=== PATIENT | female | born 1995 | race Caucasian/White ===

== ENCOUNTER → 2023-10-01 06:49 | Outpatient (REF) | payer BC, SELFPAY | LOC: PNTC 06:49 | PROVIDERS: ATTENDING PHYSICIAN Obstetrics & Gynecology | DX: O99.210 Obesity complicating pregnancy, unspecified trimester (principal) | CPT/HCPCS: 76811 ==

== ENCOUNTER 2023-10-22 15:53 | Emergency (ER) | payer BC, SELFPAY ==
[2023-10-22 16:00] VITALS: BP 113/78
[2023-10-22 16:21] LABS: % Basophils 0.1 % (0-2); % Eosinophils 1.1 % (0-6); % Immature Granulocytes 0.8 % (0-0.5); % Lymphocytes 20.2 % (20.5-51.1); % Monocytes 6.1 % (1.7-9.3); % Neutrophils 71.7 % (42.2-75.2); Absolute Eosinophils 0.1 10^3/uL (0-0.7); Absolute Immature Granulocytes 0.1 10^3/uL (0-0.05); Absolute Lymphocytes 2.4 10^3/uL (1.2-3.4); Absolute Monocytes 0.7 10^3/uL (0.1-0.6); Absolute Neutrophils 8.3 10^3/uL (1.4-6.5); Hematocrit 32.9 % (37.0-47.0); Hemoglobin 11.7 g/dL (12.0-16.0); Mean Corp Hgb Conc. 35.6 g/dL (33.0-37.0); Mean Corpuscular Hgb 30.4 pg (27.0-31.0); Mean Corpuscular Volume 85.5 fL (81.0-99.0); Mean Platelet Volume 10.9 fL (7.4-10.4); Nucleated Red Blood Cells % 0 %; Platelet Count 290 10^3/uL (130-400); Red Blood Cell Count 3.85 10^6/uL (4.20-5.40); White Blood Cell Count 11.6 10^3/uL (4.8-10.8)
[2023-10-22 16:24] LABS: Urine Albumin Negative (Neg - Trace); Urine Bilirubin Negative (Negative); Urine Character Clear (Clear); Urine Color Straw; Urine Glucose Negative (Negative); Urine Ketone Negative (Negative); Urine Leukocyte Negative (Negative); Urine Nitrite Negative (Negative); Urine Occult Blood Negative (Negative); Urine Urobilinogen Negative (Neg - 1+)
[2023-10-22 16:38] LABS: ALT (SGPT) 19 U/L (0-35); AST (SGOT) 21 U/L (14-36); Albumin 3.5 g/dl (3.5-5.0); Alkaline Phosphatase 76 U/L (38-126); Blood Urea Nitrogen 6 mg/dl (7-17); Calcium 10.2 mg/dl (8.4-10.2); Carbon Dioxide 22 mmol/L (22-30); Chloride 104 mmol/L (98-107); Glucose 86 mg/dl (70-99); Potassium 3.7 mmol/L (3.5-5.1); Sodium 136 mmol/L (135-145); Total Bilirubin 0.3 mg/dl (0.2-1.3); Total Protein 6.1 g/dl (6.3-8.2); eGFR > 60.00
[2023-10-22 16:39] LABS: Lipase 71 U/L (23-300)
--- NOTE | 2023-10-22 19:16 | ED.GENMED ---
History of Present Illness
General
Chief Complaint: Abdominal Pain
Source: patient
Exam Limitations: none
Time Seen by Provider: 10/22/23 18:40
Travel History
Have you had any contact with someone who has COVID-19?: No
Do you have any symptoms of coronavirus? Fever > 100 degrees, chills, cough, shortness of breath, sore throat, loss of taste or smell, muscle aches, or headache?: No
History of Present Illness
History of Present Illness:
This is a 27 year old female that comes in with c/o right upper abd pain. States that she has pain in the right upper abd with standing and walking. Sates that this started a couple of days ago but today she felt like she couldn't walk due to the
pain. States that today the pain has been constant. States that she has some SOB but is 6 months . States that she called the [facility] and she was told to come to the ER. Denies any fever, chills, chest pain, nausea, vomiting, diarrhea,
headache, dizziness, urinary burning. `
Past History
Past History
ED Past Medical History: Asthma, Psychiatric (Anxiety, Depression, PTSD) and Other (Migraines, COVID)
ED Past Surgical History: None
Social History
Tobacco: Non-smoker
Alcohol: None
Drug: None
Personal: Single
Living: with family
Employment: Employed
Review of Systems
Review of Systems
All Other Systems: ROS reviewed and negative except as documented in HPI and ROS
Constitutional: Reports no symptoms; Denies fever or chills
EENT: Reports no symptoms
Respiratory: Reports trouble breathing (6 months ); Denies cough
Cardiac: Reports no symptoms; Denies chest pain
ABD/GI: Reports abdominal pain (Right upper abd pain); Denies nausea, vomiting or diarrhea
: Reports no symptoms; Denies dysuria, frequency or urgency
Musculoskeletal: Reports no symptoms
Skin: Reports no symptoms
Neurological: Reports no symptoms; Denies dizzy or headache
Psychiatric: Reports no symptoms
Phy Exam
General Physical Exam
General Presentation: well appearing and no apparent distress
General age: appears stated age
General Skin: warm and dry
General Habitus: normal
General Mental: alert
General Hydration: appears well hydrated
ENT Exam
ENT Exam: TM's normal, pharynx normal and neck supple
Eye Exam
Eye Exam: EOMI
Cardiovascular Exam
Cardiovascular Exam: regular rate/rhythm, no edema, no murmur and normal peripheral pulses
Pulmonary Exam
Pulmonary Exam: lungs clear, no respiratory distress, no rales, chest non tender, no crackles, no rhonchi, no wheezing and no cough
Gastrointestinal Exam
Gastrointestinal Exam: normal bowel sounds, soft, no pulsatile mass and other (6 months )
Musculoskeletal Exam
Musculoskeletal Exam: full ROM and no edema
Skin Exam
Skin Exam: normal color, warm/dry, no rash and no petechia
Psychiatric Exam
Psychiatric Exam: normal mood/affect
Course
Orders/Labs/Results
Orders:
Orders
10/22/23 16:13
Complete Blood Count/With Diff Urgent
Comprehensive Metabolic Panel Urgent
Lipase Urgent
Urinalysis Reflex To Culture Urgent
Date Specimen was Collected: 10/22/23
Time Specimen was Collected: 16:03
10/22/23 19:15
US Abdomen Complete/Upper Urgent
Comment: 6 months
Reason For Exam: Right upper abd pain
10/22/23 19:30
Heart Tones ONCE
Abnormal Lab Results
10/22/23
16:13
WBC 11.6 H 10^3/uL
(4.8-10.8)
RBC 3.85 L 10^6/uL
(4.20-5.40)
Hgb 11.7 L g/dL
(12.0-16.0)
Hct 32.9 L %
(37.0-47.0)
MPV 10.9 H fL
(7.4-10.4)
Abs Immat Gran (auto) 0.1 H 10^3/uL
(0-0.05)
Absolute Neuts (auto) 8.3 H 10^3/uL
(1.4-6.5)
Absolute Monos (auto) 0.7 H 10^3/uL
(0.1-0.6)
Immature Gran % 0.8 H %
(0-0.5)
Lymphocytes % 20.2 L %
(20.5-51.1)
BUN 6 L mg/dl
(7-17)
Creatinine 0.4 L mg/dL
(0.6-1.0)
Total Protein 6.1 L g/dl
(6.3-8.2)
10/22/23 16:13
10/22/23 16:13
WBC slightly elevated. H/H slighty low. Total protein slightly low. Lipase normal at 71, Urine negative for infection or blood
Vital Signs
Initial and Last Documented VS:
Initial Vital Signs
Temp Pulse Resp BP Pulse Ox
99.4 F 95 16 113/78 99
10/22/23 16:00 10/22/23 16:00 10/22/23 16:00 10/22/23 16:00 10/22/23 16:00
Last Documented Vital Signs
Temp Pulse Resp BP Pulse Ox
99.4 F 95 16 114/77 98
10/22/23 16:00 10/22/23 19:59 10/22/23 16:00 10/22/23 19:59 10/22/23 19:59
MDM/Problems Addressed
Differential Diagnosis Includes:
Gallbladder disease. Pain due to
MDM/Problems Addressed:
This is a 27 year old female that is 6 months that comes in with c/o right upper abd pain. States that this started several days ago but has gotten worse today. States that she had increased pain with walking.
Will get labs and US.
Back into see patient Explained that her blood work is normal and her urine is negative for infection. There is a Polyp seen on US. This should not cause pain. Patient to follow up with the [facility]. IF the pain increases or she has nausea and
vomiting, fever she is to return to the emergency room.
Chronic conditions affecting care:
NA
Acute Exacerbation and/or Progression of Chronic Illness:
NA
*Radiology
Radiology exam reviewed: radiology read reviewed (US-4mm polyp within the gallbladder. No evidence for gallstones.Common bie duct measures upto 6mm, which is top-normal for a 27 year old patient. The pancreas is unable to be adequately visualized,
with shadowing from overlying bowel gas. Mild left pelvicalyceal dilation and moderate right) and other (US cont= right pelvicalyceal dilation. )
*Pulse Oximetry
Patient hypoxic: no
*EKG
Interpreted by ED Provider?: NA
Rate: EKG- N/A
*Planetarium Technician Interpretation
Rate: Planetarium Technician- N/A
*Critical Care Note
Total Time (30-74mins, 75-104mins- exclusive of procedures): Not Applicable
ED Attending Note
-
Portions of this chart may have been created with voice recognition software.� Occasional wrong word or��sound alike� substitutions may have occurred due to the inherent limitations of voice recognition software.
Discharge Plan
Departure
Patient Disposition: Home (Routine Discharge)
Date of Disposition: 10/22/23
Time of Disposition: 22:14
Patient with high blood pressure during this ER visit?: No
Condition: Good
Covid-19: Not Applicable
Discharge Problem:
Upper abdominal pain
Instructions: Abdominal Pain
Prescriptions:
No Action
sertraline [Zoloft] 100 mg Tablet
100 mg PO DAILY
bupropion HCl [Wellbutrin XL] 150 mg Tablet Extended Release 24 Hr
150 mg PO DAILY
rizatriptan 10 mg Tablet
10 mg PO BID PRN (Reason: headaches)
ferrous sulfate [iron] 325 mg (65 mg iron) Tablet
325 mg PO DAILY
B12 5,000-100 mcg Lozenge
SUBLINGUAL DAILY
baclofen 5 mg Tablet
2.5 mg PO DAILY PRN (Reason: pain)
Vitamin D3
2,000 units PO DAILY
Referrals:
NONE,* [Active] -
Activity Restrictions/Additional Instructions:
As discussed, your blood work is normal and your urine is negative for infection. Your US shows that there is a poly in the gallbladder. This should not cause pain. Please use Tylenol for any discomfort. Follow up with the [facility] for further
evaluation. IF YOU HAVE INCREASED OR CHANGING PAIN, FEVER, OR YOU HAVE ANY OTHER CONCERNS PLEASE RETURN TO THE EMERGENCY ROOM.
Interventions
Interventions:
*Risk Screen - Suicide Last Done: 10/22/23 16:00
*General Assessment Last Done: 10/22/23 16:00
*Neglect/Abuse Screening Last Done: 10/22/23 16:00
*ED COVID-19 Vaccine History Last Done: 10/22/23 16:00
MW-Qyzrsf-Cmjeydqbgr Assessment Last Done: 10/22/23 20:00
[2023-10-22 19:59] VITALS: BP 114/77
[2023-10-22 22:35] VITALS: BP 96/71
== END 2023-10-22 22:38 | disposition home or self-care (01) ==
LOC: EMR 15:53
PROVIDERS: Student in an Organized Health Care Education/Training Program; EMERGENCY PHYSICIAN Emergency Medicine; FAMILY PHYSICIAN Physician Assistant
DX: R10.10 Upper abdominal pain, unspecified (principal)
CPT/HCPCS: 99284; 76700; 80053; 81003; 83690; 85025

== ENCOUNTER → 2023-11-09 06:58 | Outpatient (REF) | payer BC, SELFPAY | LOC: PNTC 06:58 | PROVIDERS: ATTENDING PHYSICIAN Obstetrics & Gynecology | DX: O99.210 Obesity complicating pregnancy, unspecified trimester (principal) | CPT/HCPCS: 76816 ==

== ENCOUNTER → 2023-11-18 07:29 | Outpatient (REF) | payer BC, SELFPAY ==
[2023-11-18 08:49] LABS: % Basophils 0.2 % (0-2); % Eosinophils 1.4 % (0-6); % Immature Granulocytes 0.6 % (0-0.5); % Lymphocytes 18.2 % (20.5-51.1); % Neutrophils 74.6 % (42.2-75.2); Absolute Eosinophils 0.1 10^3/uL (0-0.7); Absolute Immature Granulocytes 0.1 10^3/uL (0-0.05); Absolute Lymphocytes 1.8 10^3/uL (1.2-3.4); Absolute Monocytes 0.5 10^3/uL (0.1-0.6); Absolute Neutrophils 7.2 10^3/uL (1.4-6.5); Hematocrit 34.3 % (37.0-47.0); Hemoglobin 11.6 g/dL (12.0-16.0); Mean Corp Hgb Conc. 33.8 g/dL (33.0-37.0); Mean Corpuscular Hgb 29.6 pg (27.0-31.0); Mean Corpuscular Volume 87.5 fL (81.0-99.0); Mean Platelet Volume 11.2 fL (7.4-10.4); Nucleated Red Blood Cells % 0 %; Platelet Count 288 10^3/uL (130-400); Red Blood Cell Count 3.92 10^6/uL (4.20-5.40); White Blood Cell Count 9.7 10^3/uL (4.8-10.8)
[2023-11-18 09:20] LABS: 1 Hour after 50gm 142 mg/dl; Iron 84 ug/dl (37-170)
[2023-11-18 09:38] LABS: Vitamin D, 25-OH*** 32.3 ng/mL (30-80)
[2023-11-18 09:52] LABS: TSH 1.12 uIU/ml (0.47-4.68)
[2023-11-18 09:56] LABS: Ferritin 51.6 ng/ml (6.24-137)
[2023-11-18 10:11] LABS: Vitamin B12 373 pg/ml (239-931)
[2023-11-20 12:39] LABS: Syphilis/T. pallidum Ab Reflex Negative (Negative)
== END ==
LOC: REG 07:29
PROVIDERS: ATTENDING PHYSICIAN Obstetrics & Gynecology; FAMILY PHYSICIAN Physician Assistant
DX: Z34.02 Encounter for supervision of normal first pregnancy, second trimester (principal); R79.0 Abnormal level of blood mineral; E55.9 Vitamin D deficiency, unspecified; E53.8 Deficiency of other specified B group vitamins
CPT/HCPCS: 36415; 82306; 82607; 82728; 82950; 83540; 84443; 85025; 86780

== ENCOUNTER → 2023-12-14 08:52 | Outpatient (REF) | payer BC, SELFPAY ==
[2023-12-14 09:41] LABS: Glucose for Tolerance Test 82 mg/dl
[2023-12-14 12:05] LABS: Glucose for Tolerance Test 126 mg/dl
[2023-12-14 13:26] LABS: Glucose for Tolerance Test 127 mg/dl
[2023-12-14 14:01] LABS: Glucose for Tolerance Test 101 mg/dl
== END ==
LOC: REG 08:52
PROVIDERS: ATTENDING PHYSICIAN Obstetrics & Gynecology
DX: Z33.1 Pregnant state, incidental (principal)
CPT/HCPCS: 36415; 82951

== ENCOUNTER → 2023-12-21 06:59 | Outpatient (REF) | payer BC, SELFPAY | LOC: PNTC 06:59 | PROVIDERS: ATTENDING PHYSICIAN Obstetrics & Gynecology | DX: O99.210 Obesity complicating pregnancy, unspecified trimester (principal) | CPT/HCPCS: 76816 ==

== ENCOUNTER 2023-12-22 19:31 | Observation (INO) | payer BC, SELFPAY ==
[2023-12-22 19:43] VITALS: BMI 31.7
[2023-12-22 20:09] VITALS: BP 120/76
[2023-12-22 20:33] LABS: Urine Albumin Negative (Neg - Trace); Urine Bilirubin Negative (Negative); Urine Character Clear (Clear); Urine Color Yellow; Urine Glucose Negative (Negative); Urine Ketone Negative (Negative); Urine Leukocyte 1+ (Negative); Urine Nitrite Negative (Negative); Urine Occult Blood Negative (Negative); Urine Specific Gravity 1.005 (<1.030); Urine Urobilinogen Negative (Neg - 1+)
[2023-12-22 20:42] LABS: Urine Squamous Cell 16-20 /LPF (Few)
[2023-12-22 20:43] LABS: Urine Red Blood Cell 0-2 /HPF (0-2)
[2023-12-22 20:44] LABS: Urine Bacteria Many (Negative)
[2023-12-24 20:19] LABS: Bacterial Vaginosis by TMA Negative; Candida glabrata by TMA Negative; Candida species by TMA Negative; Trichomonas vaginalis by TMA Negative
== END 2023-12-22 21:38 | disposition home or self-care (01) ==
LOC: LDRP 19:31
PROVIDERS: ADMITTING PHYSICIAN Obstetrics & Gynecology
DX: R10.9 Unspecified abdominal pain (principal); M54.50 Low back pain, unspecified; Z3A.32 32 weeks gestation of pregnancy; R35.0 Frequency of micturition; Z91.018 Allergy to other foods
CPT/HCPCS: 81003; 81015; 81513; 87086; 87481; 87491; 87591; 87661; G0378

== ENCOUNTER 2024-01-23 14:55 | Observation (INO) | payer BC, SELFPAY ==
[2024-01-23 15:08] VITALS: BP 117/75; BMI 36.6
== END 2024-01-23 17:03 | disposition home or self-care (01) ==
LOC: LDRP 14:55
PROVIDERS: ADMITTING PHYSICIAN Obstetrics & Gynecology
DX: O36.8130 Decreased fetal movements, third trimester, not applicable or unspecified (principal); Z3A.37 37 weeks gestation of pregnancy
CPT/HCPCS: 59025; G0378

== ENCOUNTER → 2024-02-03 16:47 | Outpatient (REF) | payer BC, SELFPAY | LOC: PNTC 16:47 | PROVIDERS: ATTENDING PHYSICIAN Obstetrics & Gynecology | DX: O36.8190 Decreased fetal movements, unspecified trimester, not applicable or unspecified (principal) | CPT/HCPCS: 59025 ==

== ENCOUNTER 2024-02-15 20:06 | Inpatient (IN) | payer BC, SELFPAY ==
[2024-02-15 20:37] VITALS: BP 104/67; BMI 38.8
[2024-02-15] MEDS: LR 1000 IV (21:02)
[2024-02-15 21:03] LABS: % Basophils 0.3 % (0-2); % Eosinophils 1.1 % (0-6); % Immature Granulocytes 0.8 % (0-0.5); % Neutrophils 68.8 % (42.2-75.2); Absolute Eosinophils 0.1 10^3/uL (0-0.7); Absolute Immature Granulocytes 0.1 10^3/uL (0-0.05); Absolute Lymphocytes 2.7 10^3/uL (1.2-3.4); Absolute Monocytes 0.7 10^3/uL (0.1-0.6); Absolute Neutrophils 8.2 10^3/uL (1.4-6.5); Hematocrit 34.1 % (37.0-47.0); Hemoglobin 12.3 g/dL (12.0-16.0); Mean Corp Hgb Conc. 36.1 g/dL (33.0-37.0); Mean Corpuscular Hgb 29.7 pg (27.0-31.0); Mean Corpuscular Volume 82.4 fL (81.0-99.0); Mean Platelet Volume 11.7 fL (7.4-10.4); Nucleated Red Blood Cells % 0 %; Platelet Count 252 10^3/uL (130-400); Red Blood Cell Count 4.14 10^6/uL (4.20-5.40); Red Cell Dist. Width 14.2 % (11.5-14.5); White Blood Cell Count 11.9 10^3/uL (4.8-10.8)
[2024-02-15] MEDS: PITOCIN 30 UNITS/NSS 500 ML IV (23:56)
[2024-02-16] MEDS: TUMS 2 TABLET PO ×2 (03:08→11:57)
[2024-02-16] MEDS: PRENATAL PLUS PO (11:58)
[2024-02-16] MEDS: CYTOTEC 50 MICROGRAM PO ×2 (12:47→17:13)
[2024-02-16] MEDS: LR 1000 IV (19:19)
[2024-02-16] MEDS: PENICILLIN 110 UNITS IV (19:35)
[2024-02-16] MEDS: PITOCIN 30 UNITS/NSS 500 ML IV (23:03)
[2024-02-16] MEDS: CYTOTEC PO (23:30)
[2024-02-16] MEDS: PENICILLIN 55 UNITS IV (23:30)
[2024-02-17] MEDS: TUMS 2 TABLET PO ×2 (02:25→13:54)
[2024-02-17] MEDS: PENICILLIN 55 UNITS IV ×5 (03:30→19:28)
[2024-02-17] MEDS: LR 1000 IV ×2 (03:30→11:32)
--- NOTE | 2024-02-17 03:41 | DOWNTIME ---
There was a [employer] Client Contact Lens Technician Downtime on 02/17/2024 from 0100 to 02/17/2024 at 0337. Downtime documentation of patient's care, including medication administrations, has been reconciled in the electronic record per guidelines. Refer to the
patient's paper chart under the miscellaneous tab to see printed paper medication records and downtime forms.
[2024-02-17] MEDS: FENTANYL/BUPIVACAINE 100 EPIDURAL ×3 (04:44→20:03)
[2024-02-17] MEDS: SUBLIMAZE 100 MCG EPIDURAL (04:44)
[2024-02-17] MEDS: CYTOTEC PO ×3 (05:15→11:31)
[2024-02-17] MEDS: PRENATAL PLUS PO (11:31)
[2024-02-17] MEDS: TYLENOL 1000 MG PO (20:25)
[2024-02-17] MEDS: ANCEF 10 IV (20:48)
[2024-02-17] MEDS: BICITRA 30 ML PO (20:48)
[2024-02-17] MEDS: ZITHROMAX INFUSION 250 IV (20:52)
[2024-02-17 21:35] LABS: Cord ABG Comment CORD BLOOD
[2024-02-17 21:40] LABS: B.E. Cord ABG -4.8 mMOL/L; HCO3 Cord ABG 19.8 mmol/L; O2 Saturation % Cord ABG 59.7 %; PCO2 Cord ABG 35 mmHg; PO2 Cord ABG 28 mmHg; pH Cord ABG 7.36
--- NOTE | 2024-02-17 21:59 | W.IMMPOSTOP ---
Surgical Immed Post Op Note
-
Primary Surgeon: Tiffanie Munoz DO
Assisting Surgeon: Debora Samayoa RN
Pre-op Diagnosis: IUP at 40+4wks, failure to progress, category II FHT, GBS positive
Post-op Diagnosis: IUP at 40+4wks, failure to progress, category II FHT, GBS positive
Procedure Performed: PLTCS
Anesthesia Type: Epidural
Specimen / Cultures: cord gases, placenta
Estimated Blood Loss: 850ml
Complications: none
Operative Findings: Male , cephalic, significant caput noted, clear amniotic fluid; Normal uterus and b/l tubes and ovaries. Intermittent uterine atony after closure of the hysterotomy-- Methergine 0.2mg IM given with improved tone noted.
[2024-02-18] MEDS: TYLENOL 650 MG PO ×3 (01:35→15:21)
[2024-02-18] MEDS: PITOCIN 30 UNITS/NSS 500 ML IV (03:13)
[2024-02-18] MEDS: TORADOL 15 MG IV ×4 (03:57→22:09)
[2024-02-18 04:38] LABS: Hematocrit 31.3 % (37.0-47.0); Mean Corp Hgb Conc. 35.1 g/dL (33.0-37.0); Mean Corpuscular Hgb 29.6 pg (27.0-31.0); Mean Corpuscular Volume 84.1 fL (81.0-99.0); Mean Platelet Volume 11.7 fL (7.4-10.4); Platelet Count 213 10^3/uL (130-400); Red Blood Cell Count 3.72 10^6/uL (4.20-5.40); Red Cell Dist. Width 14.5 % (11.5-14.5); White Blood Cell Count 13.8 10^3/uL (4.8-10.8)
[2024-02-18] MEDS: MYLICON 80 MG PO ×3 (08:12→21:48)
[2024-02-18] MEDS: FEOSOL 325 MG PO (08:12)
[2024-02-18] MEDS: PRENATAL PLUS 1 TABLET PO (08:12)
[2024-02-18] MEDS: SENOKOT-S 1 TABLET PO (08:12)
--- NOTE | 2024-02-18 10:30 | W.PN.ANS.POP ---
Anesthesia Post Operative
- Anesthesia Post Op Note
Vital Signs Stable-See Nursing Note: Yes
Airway Patent: Yes
Adequate Pain Control: Yes
Change in Mental Status: No
Current Postoperative Nausea & Vomiting: No
Anesthesia Complications: No
General Anesthetic Recall: No
Unplanned Admission: No
Post Op Hydration Adequate: Yes
[2024-02-19] MEDS: TYLENOL 650 MG PO ×3 (05:35→20:46)
[2024-02-19] MEDS: MOTRIN 600 MG PO ×3 (05:35→20:46)
[2024-02-19] MEDS: SENOKOT-S 1 TABLET PO (07:51)
[2024-02-19] MEDS: PRENATAL PLUS 1 TABLET PO (07:51)
[2024-02-19] MEDS: FEOSOL 325 MG PO (07:51)
[2024-02-19] MEDS: MYLICON 80 MG PO ×2 (12:01→20:47)
[2024-02-19 13:45] LABS: Syphilis/T. pallidum Ab Reflex Negative (Negative)
[2024-02-19] MEDS: HYDROCORTISONE 2.5% CREAM 1 APPLIC TOPICAL (21:15)
[2024-02-20] MEDS: MOTRIN 600 MG PO (03:54)
[2024-02-20] MEDS: TYLENOL 650 MG PO (03:54)
[2024-02-20] MEDS: PRENATAL PLUS 1 TABLET PO (08:16)
[2024-02-20] MEDS: MYLICON 80 MG PO (08:16)
[2024-02-20] MEDS: FEOSOL 325 MG PO (08:16)
--- NOTE | 2024-02-20 10:40 | W.DS.TRANS ---
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
-
Discharge Instructions:
Discharge Diagnosis/Procedures section
Instructions:
Stand-Alone Forms: LDRP Delivery
Changes to Home Medications: No
Discharge Medications:
DC Medications w/original date entered in [employer]
vitamin-ferrous fumarate 28 mg iron-folic acid 800 mcg tablet ( Tablet) 1 tab PO DAILY Supplement 01/23/24
ferrous sulfate 325 mg (65 mg iron) tablet (iron) 325 mg PO DAILY Supplement 02/15/24
acetaminophen 325 mg tablet 650 mg (2 x 325 mg) PO Q4HPRN PRN mild pain #0 tabs 02/20/24
hydrocortisone 2.5 % topical cream 1 applic topical BIDPRN PRN rash #0 grams 02/20/24
ibuprofen 600 mg tablet 600 mg PO Q6HPRN PRN cramps #45 tabs 02/20/24
sennosides 8.6 mg-docusate sodium 50 mg tablet (Stool Softener-Laxative) 1 tab PO DAILYPRN PRN constipation #0 tabs 02/20/24
Home Medication Changes
Pending Results: No
== END 2024-02-20 13:00 | disposition home or self-care (01) | DRG 788 ==
LOC: LDRP 20:06
PROVIDERS: Obstetrics & Gynecology; ADMITTING PHYSICIAN Obstetrics & Gynecology; FAMILY PHYSICIAN Family Medicine
PROC: 3E033VJ Introduction of Other Hormone into Peripheral Vein, Percutaneous Approach (ICD-10-PCS; 2024-02-15)
PROC: 3E0P7VZ Introduction of Hormone into Female Reproductive, Via Natural or Artificial Opening (ICD-10-PCS; 2024-02-16)
PROC: 0U7C7ZZ Dilation of Cervix, Via Natural or Artificial Opening (ICD-10-PCS; 2024-02-16)
PROC: 10D00Z1 Extraction of Products of Conception, Low, Open Approach (ICD-10-PCS; 2024-02-17)
PROC: 10907ZC Drainage of Amniotic Fluid, Therapeutic from Products of Conception, Via Natural or Artificial Opening (ICD-10-PCS; 2024-02-17)
DX: O48.0 Post-term pregnancy (principal); Z3A.40 40 weeks gestation of pregnancy; O99.824 Streptococcus B carrier state complicating childbirth; O76 Abnormality in fetal heart rate and rhythm complicating labor and delivery; Z37.0 Single live birth; O99.214 Obesity complicating childbirth
CPT/HCPCS: 88307; 82803; 85025; 85027; 86780; 86850; 86900; 86901; 93005

== ENCOUNTER → 2024-03-15 16:13 | Outpatient (REF) | payer BC, SELFPAY ==
[2024-03-15 17:36] LABS: % Basophils 0.4 % (0-2); % Immature Granulocytes 0.2 % (0-0.5); % Lymphocytes 43.6 % (20.5-51.1); % Monocytes 6.5 % (1.7-9.3); % Neutrophils 46.3 % (42.2-75.2); Absolute Eosinophils 0.2 10^3/uL (0-0.7); Absolute Lymphocytes 2.4 10^3/uL (1.2-3.4); Absolute Monocytes 0.4 10^3/uL (0.1-0.6); Absolute Neutrophils 2.5 10^3/uL (1.4-6.5); Hematocrit 37.3 % (37.0-47.0); Hemoglobin 12.4 g/dL (12.0-16.0); Mean Corp Hgb Conc. 33.2 g/dL (33.0-37.0); Mean Corpuscular Hgb 29.4 pg (27.0-31.0); Mean Corpuscular Volume 88.4 fL (81.0-99.0); Mean Platelet Volume 11.8 fL (7.4-10.4); Nucleated Red Blood Cells % 0 %; Platelet Count 252 10^3/uL (130-400); Red Blood Cell Count 4.22 10^6/uL (4.20-5.40); White Blood Cell Count 5.4 10^3/uL (4.8-10.8)
[2024-03-15 17:44] LABS: Urine Albumin Trace (Neg - Trace); Urine Bilirubin Negative (Negative); Urine Character Very Cloudy (Clear); Urine Color Yellow; Urine Glucose Negative (Negative); Urine Ketone Negative (Negative); Urine Leukocyte 2+ (Negative); Urine Nitrite Negative (Negative); Urine Occult Blood 4+ (Negative); Urine Specific Gravity 1.015 (<1.030); Urine Urobilinogen Negative (Neg - 1+)
[2024-03-15 17:45] LABS: ALT (SGPT) 18 U/L (0-35); AST (SGOT) 24 U/L (14-36); Albumin 4.2 g/dl (3.5-5.0); Alkaline Phosphatase 106 U/L (38-126); Blood Urea Nitrogen 9 mg/dl (7-17); Carbon Dioxide 24 mmol/L (22-30); Chloride 106 mmol/L (98-107); Glucose 82 mg/dl (70-99); HDL Cholesterol 82 mg/dl; LDL Cholesterol, Calculated 138 mg/dl; Potassium 4.1 mmol/L (3.5-5.1); Sodium 138 mmol/L (135-145); Total Bilirubin 0.5 mg/dl (0.2-1.3); Total Cholesterol 240 mg/dl (50-199); Total Protein 6.3 g/dl (6.3-8.2); Triglyceride 103 mg/dl (10-149); Very Low Density Lipoprotein 20 mg/dl (0-30); eGFR > 60.00
[2024-03-15 17:52] LABS: Erythrocyte Sed Rate 11 mm/hour (0-20)
[2024-03-15 17:53] LABS: Urine Squamous Cell >30 /LPF (Few)
[2024-03-15 17:54] LABS: Urine Bacteria Moderate (Negative)
[2024-03-15 18:02] LABS: Free T4 0.96 ng/dl (0.78-2.19)
[2024-03-15 18:16] LABS: TSH 0.83 uIU/ml (0.47-4.68)
[2024-03-16 10:42] LABS: Iron 83 ug/dl (37-170)
[2024-03-16 10:51] LABS: Percent Saturation 30 % (20-50); Total Iron Binding Capacity 269 ug/dl (265-497)
[2024-03-16 11:19] LABS: Ferritin 33.4 ng/ml (6.24-137)
[2024-03-16 11:44] LABS: tTG IgA Antibody 2.5 EU/ml (0-19)
[2024-03-16 15:07] LABS: Lyme Antibody Screen, EIA Negative (Negative)
[2024-03-16 23:10] LABS: IgA 65 mg/dl (70-400)
== END ==
LOC: CLAB 16:13
PROVIDERS: ATTENDING PHYSICIAN Family Medicine
DX: Z39.2 Encounter for routine postpartum follow-up (principal)
CPT/HCPCS: 36415; 80053; 80061; 81003; 81015; 82728; 82784; 83516; 83540; 83550; 84439; 84443; 85025; 85652; 86038; 86231; 86618

== ENCOUNTER → 2024-04-07 09:12 | Outpatient (REF) | payer BC, SELFPAY | LOC: RCS 09:12 | PROVIDERS: ATTENDING PHYSICIAN Internal Medicine Cardiovascular Disease; FAMILY PHYSICIAN Family Medicine | DX: R00.2 Palpitations (principal) | CPT/HCPCS: 93306 ==

== ENCOUNTER 2025-01-28 18:36 | Emergency (ER) | payer OTHER, SELFPAY ==
[2025-01-28 18:38] VITALS: BP 145/93
--- NOTE | 2025-01-28 19:38 | ED.GENMED ---
History of Present Illness
General
Chief Complaint: Musculo-Skeletal Complaint
Source: patient
Exam Limitations: none
Time Seen by Provider: 01/28/25 19:03
Nursing documentation reviewed up to this point in time: agreed with
History of Present Illness
History of Present Illness:
29-year female presents to the ER for evaluation of right knee pain. Patient was diagnosed with patellofemoral knee syndrome by [facility] orthopedics in August. She was recommended to go to physical therapy but with childcare issues has not been
able to do so. She reports for the past 2 days she has had a lot of pain in her right knee that shooting down to her leg and upper leg. 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
doing a lot of walking. She has been taking ibuprofen. She denies any redness swelling fevers. No calf tenderness or pain.
Past History
Past History
ED Past Medical History: Asthma, Psychiatric (Anxiety, Depression, PTSD) and Other (Migraines, COVID)
ED Past Surgical History: None
Social History
Tobacco: Non-smoker
Alcohol: None
Drug: None
Personal: Single
Living: with family
Employment: Employed
Review of Systems
Review of Systems
Allergies reviewed?: Yes
All Other Systems: ROS reviewed and negative except as documented in HPI and ROS
Constitutional: Reports no symptoms
Musculoskeletal: Reports other (right knee pain )
Skin: Reports no symptoms
Psychiatric: Reports no symptoms
Phy Exam
General Physical Exam
General Presentation: no apparent distress
General age: appears stated age
General Skin: warm and dry
General Habitus: normal
General Mental: alert
General Hydration: appears well hydrated
Neurological Exam
Neurological Exam: alert and oriented x3
Musculoskeletal Exam
Musculoskeletal Exam: other (Right lower extremity with strong pulses no obvious swelling or redness mild discomfort full extension but full range of motion no ligament laxity ; no calf tenderness or swelling )
Skin Exam
Skin Exam: normal color and warm/dry
Psychiatric Exam
Psychiatric Exam: normal mood/affect
Course
Orders/Labs/Results
Orders:
Orders
01/28/25 19:35
Knee, Right 4 or More Views [CR Knee- Right 4 Or More View*] Urgent
Comment:
Reason For Exam: pain
01/28/25 19:36
Knee Immobilizer Right-Treatme ONCE
Ketorolac [Toradol] 30 mg IM NOW STA
Vital Signs
Initial and Last Documented VS:
Initial Vital Signs
Temp Pulse Resp BP Pulse Ox
99.0 F 94 18 145/93 98
01/28/25 18:38 01/28/25 18:38 01/28/25 18:38 01/28/25 18:38 01/28/25 18:38
Last Documented Vital Signs
Temp Pulse Resp BP Pulse Ox
99.0 F 94 18 145/93 98
01/28/25 18:38 01/28/25 18:38 01/28/25 18:38 01/28/25 18:38 01/28/25 18:38
MDM/Problems Addressed
MDM/Problems Addressed:
No concerning findings on patient's knee exam. Patient was diagnosed with patellofemoral syndrome of the right knee by her orthopedic Dr. Pederson. She has been walking on a lot at work and over the past 2 days has had increased pain no evidence of
infection or effusion no acute findings on x-ray no calf swelling or tenderness no evidence of DVT.
. Pt with Good range of motion will DC with immobilizer ibuprofen and outpatient follow-up.
*Radiology
Radiology exam reviewed: preliminary read by ED provider (MANOJ ) and radiology read reviewed
*Pulse Oximetry
Patient hypoxic: no
*Critical Care Note
Total Time (30-74mins, 75-104mins- exclusive of procedures): Not Applicable
ED Attending Note
-
Portions of this chart may have been created with voice recognition software.� Occasional wrong word or��sound alike� substitutions may have occurred due to the inherent limitations of voice recognition software.
Discharge Plan
Departure
Patient Disposition: Home (Routine Discharge)
Date of Disposition: 01/28/25
Time of Disposition: 20:09
Patient with high blood pressure during this ER visit?: Yes
Condition: Fair
Covid-19: Not Applicable
Discharge Problem:
knee pain
Instructions: Knee Immobilizer (DC), Knee Pain (DC)
Prescriptions:
No Action
vit-iron fum-folic ac [ Tablet] 28 mg iron- 800 mcg Tablet
1 tab PO DAILY
ferrous sulfate [iron] 325 mg (65 mg iron) Tablet
325 mg PO DAILY
acetaminophen 325 mg Tablet
650 mg PO Q4HPRN PRN (Reason: mild pain) Qty: 0 0RF
sennosides-docusate sodium [Stool Softener-Laxative] 8.6-50 mg Tablet
1 tab PO DAILYPRN PRN (Reason: constipation) Qty: 0 0RF
hydrocortisone 2.5 % Cream
1 applic topical BIDPRN PRN (Reason: rash) Qty: 0 0RF
ibuprofen 600 mg Tablet
600 mg PO Q6HPRN PRN (Reason: cramps) Qty: 45 0RF
Referrals:
Scott Garcia DO [Family Provider, Family Practice]
Stand Alone Forms: Return to Work
Activity Restrictions/Additional Instructions:
As discussed please try to rest the knee is much as possible, keep elevated as much as possible and alternate with ibuprofen and Tylenol. You may wear immobilizer for support during the day but remove at night while sleeping.
Follow up with your orthopedic doctor in the next 2-3 days.
Interventions
Interventions:
*Risk Screen - Suicide Last Done: 01/28/25 18:38
*General Assessment Last Done: 01/28/25 18:38
*Neglect/Abuse Screening Last Done: 01/28/25 18:38
*ED- Fall Risk Assessment Last Done: 01/28/25 19:41
*ED COVID-19 Vaccine History Last Done: 01/28/25 19:41
ED-Musculoskeletal Assessment Last Done: 01/28/25 19:41
Discharge Date and Time
Print Language: BULGARIAN
[2025-01-28] MEDS: TORADOL 30 MG IM (19:39)
[2025-01-28 19:40] VITALS: BMI 32.0
== END 2025-01-28 20:29 | disposition home or self-care (01) ==
LOC: EMR 18:36
PROVIDERS: EMERGENCY PHYSICIAN Emergency Medicine; FAMILY PHYSICIAN Family Medicine
DX: M25.561 Pain in right knee (principal); J45.909 Unspecified asthma, uncomplicated
CPT/HCPCS: 96372; 99284; 73564